=== PATIENT | male | born 1950 | race Caucasian/White ===

== ENCOUNTER 2017-09-16 05:56 | Day surgery (SDC) | payer OTHER ==
[2017-09-09 09:10] VITALS: BMI 32.5
[2017-09-16 13:16] VITALS: TEMP 97.7
[2017-09-16 13:34] VITALS: BP 139/76; PULSE 74
== END 2017-09-16 13:45 | disposition home or self-care (01) ==
LOC: FASU 05:56
PROVIDERS: ATTEND Ophthalmology
PROC: 08RK3JZ Replacement of Left Lens with Synthetic Substitute, Percutaneous Approach (ICD-10-PCS; principal; 2017-09-16)
DX: H26.8 Other specified cataract (principal); H57.03 Miosis

== ENCOUNTER 2021-12-21 09:50 | Emergency (ER) | payer OTHER ==
[2021-12-21 10:01] VITALS: BP 150/87; PULSE 73; TEMP 97.9; BMI 31.6
[2021-12-21] MEDS ORDERED: SODIUM CHLORIDE 1,000 ML IV STA (10:49)
[2021-12-21] MEDS ORDERED: ACETAMINOPHEN 1000 MG/100 ML BAG IVPB ONE (10:49)
[2021-12-21] MEDS ORDERED: ACETAMINOPHEN INJECTION 100 ML IVPB ONE (11:05)
[2021-12-21 11:25] LABS: BASO % 0.9 % (0-2.0); HEMATOCRIT 42.1 % (35.4-49); HEMOGLOBIN 14.2 GM/dL (11.7-16.9); LYMPH % 34.5 % (8-40); MCH 29.1 pg (25.7-33.7); MCHC 33.7 g/dl (32.0-35.9); MEAN CELL VOLUME 86.5 fl (80-96); MONO % 10.7 % (3.8-10.2); NEUT % 44.9 % (42.8-82.8); PLATELET COUNT 299 10^3/uL (134-434); RBC 4.87 M/mm3 (4.00-5.60); RDW 14.1 % (11.9-15.9); WHITE BLOOD COUNT 4.8 K/mm3 (4.0-10.0)
[2021-12-21 11:27] LABS: EPI CELLS 1 /uL (0-25.1); HYALINE CASTS 0 /uL (0-3.1); PH,URINE 5.5 (5.0-8.0); URINE APPEARANCE CLEAR; URINE BACTERIA 1 /uL (0-1359); URINE BILIRUBIN NEGATIVE (NEGATIVE); URINE COLOR YELLOW; URINE GLUCOSE (UA) NEGATIVE (NEGATIVE); URINE KETONE NEGATIVE (NEGATIVE); URINE LEUK ESTERASE NEGATIVE (NEGATIVE); URINE NITRITE NEGATIVE (NEGATIVE); URINE PROTEIN NEGATIVE (NEGATIVE); URINE RBC 13 /uL (0-23.9); URINE UROBILINOGEN 0.2 mg/dL (0.2-1.0); URINE WBC 4 /uL (0-25.8)
[2021-12-21 11:45] LABS: ALBUMIN 3.9 g/dl (3.4-5.0); CALCIUM 9.6 mg/dL (8.5-10.1)
[2021-12-21 11:50] LABS: BILIRUBIN,TOTAL 0.3 mg/dL (0.2-1); TOT PROT 7.6 g/dl (6.4-8.2)
== END 2021-12-21 14:15 | disposition home or self-care (01) ==
LOC: JERFT 09:50
PROC: 3E0333Z Introduction of Anti-inflammatory into Peripheral Vein, Percutaneous Approach (ICD-10-PCS; principal; 2021-12-21)
PROC: 3E0337Z Introduction of Electrolytic and Water Balance Substance into Peripheral Vein, Percutaneous Approach (ICD-10-PCS; 2021-12-21)
DX: K40.90 Unilateral inguinal hernia, without obstruction or gangrene, not specified as recurrent (principal); K57.92 Diverticulitis of intestine, part unspecified, without perforation or abscess without bleeding
CPT/HCPCS: 36415; 74177-TC; 80053; 81003; 83690; 85025; 87086; 96361; 96374; 99285-25; Q9967

== ENCOUNTER 2022-02-01 04:16 | Day surgery (SDC) | payer OTHER ==
[2022-01-11 11:52] VITALS: BMI 30.4
[2022-02-01] MEDS ORDERED: BUPIVACAINE HCL/PF 0.5% (5MG/ML) 10 ML VIAL ONE (10:51)
[2022-02-01] MEDS ORDERED: PROPOFOL 60 ML ONE (11:21)
[2022-02-01] MEDS ORDERED: SUCCINYLCHOLINE CHLORIDE 200 MG/10 ML SYRINGE ONE (11:22)
[2022-02-01] MEDS ORDERED: ceFAZolin 2 GRAM PREMIX BAG IVPB ONE (11:40)
[2022-02-01] MEDS ORDERED: BUPIVACAINE HCL/PF 0.5% (5MG/ML) 10 ML VIAL NR ONE (11:53)
[2022-02-01] MEDS ORDERED: LIDOCAINE HCL 1%, 10 MG/ML (20ML VIAL) SQ ONE (11:53)
[2022-02-01 15:11] VITALS: BP 129/72; PULSE 86; RESP 16; TEMP 97.6
== END 2022-02-01 14:50 | disposition home or self-care (01) ==
LOC: JASU-SURG 04:16
PROVIDERS: ATTEND Surgery
PROC: 0YU50JZ Supplement Right Inguinal Region with Synthetic Substitute, Open Approach (ICD-10-PCS; principal; 2022-02-01 08:00)
DX: K40.90 Unilateral inguinal hernia, without obstruction or gangrene, not specified as recurrent (principal)
CPT/HCPCS: 88304-TC; 94760; C1781

== ENCOUNTER 2022-03-04 11:30 | Emergency (ER) | payer OTHER ==
[2022-03-04 11:41] VITALS: BP 157/80; PULSE 69; RESP 18; TEMP 97.7; BMI 30.4
== END 2022-03-04 15:51 | disposition home or self-care (01) ==
LOC: JER 11:30 → JERFT 11:30
DX: R09.81 Nasal congestion (principal); R05.1 Acute cough
CPT/HCPCS: 0241U-QW; 71046-TC-FY; 93005; 93010; 99285-25